=== PATIENT | female | born 1940 | race Caucasian/White ===

== ENCOUNTER 2020-07-01 11:26 | Outpatient (CLI) | payer MEDICARE, OTHER | END 2020-07-01 11:27 | disposition EMS.NT | LOC: EMS 11:26 | DX: M25.539 Pain in unspecified wrist (principal) ==

== ENCOUNTER 2020-07-01 12:20 | Emergency (ER) | payer MEDICARE, OTHER ==
--- NOTE | 2020-07-01 13:16 | XRAY Report ---
PROCEDURE: Wrist 3 View LT INDICATIONS: injury TECHNIQUE: 3 views of the wrist were acquired. COMPARISON: None FINDINGS: Bones: No dislocations. No suspicious bony lesions. Note is made of a distal radius dorsally impac alyssa and angulated Colace fracture, intra-articular, and a thin fracture fragment is seen at the far d istal tip of the ulnar styloid process. Prior probable fractures of the fourth and fifth carpal bones appear chronic. Scaphoid view: No trauma of the scaphoid is found but no dedicated scaphoid view is available for re view. Soft tissues: No suspicious soft tissue calcifications. IMPRESSION: Acute appearing distal radius fractures with dorsal angulation and impaction injury associated. The f racture at the ulnar styloid process tip is minimal. Old healed metacarpal fractures noted. Prior fix ation devices appear free of disruption. Reviewed by: Miguelito Zabala MD on 07/01/2020 1:15 PM PST Approved by: Miguelito Zabala MD on 07/01/2020 1:15 PM PST Station ID: [id number]
--- NOTE | 2020-07-01 13:17 | ED Physician Documentation ---
History of Present Illness - Stated complaint Stated Complaint: WRIST INJURIES - Chief complaint Chief Complaint: Trauma Ext - Additonal information Additional information: 79-year-old female presents the emergency department for evaluation of bilateral wrist pain though left greater than right. [place] the beach [place] and attempting to pull debris from the water when she lost her footing falling backwards onto an outstretched hand. She had immediate pain in the left wrist with swelling. She also has some pain in the right wrist to a lesser degree. She does have a history of extensive hand fracture and injury to the left hand which was repaired number of years ago. Patient is mostly right-handed but does report herself as ambidextrous. She did not lose consciousness and is not anticoagulated otherwise appears well Past medical history: hypertension Review of Systems Constitutional: reports: Reviewed and negative Ears: reports: Reviewed and negative Nose: reports: Reviewed and negative Cardiac: reports: Reviewed and negative Respiratory: reports: Reviewed and negative : reports: Reviewed and negative Skin: reports: Reviewed and negative Musculoskeletal: reports: Joint pain (bilateral wrist). 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 HEENT: Tonsil/Adenoidectomy - Present Medications Home Medications: Ambulatory Orders Medication Instructions Recorded Confirmed Ibuprofen 400 mg PO DAILY 12/14/15 12/14/15 Simvastatin 20 mg PO DAILY 12/14/15 12/14/15 diphenhydrAMINE [Benadryl] 1 tab PO DAILY 12/14/15 12/14/15 - Allergies Allergies/Adverse Reactions: Allergies Allergy/AdvReac Type Severity Reaction Status Date / Time Influenza Virus Vaccines Allergy Unknown Verified 07/01/20 12:34 shellfish derived Allergy Anaphylaxis Verified 07/01/20 12:34 - Social History Does the pt smoke?: No Smoking Status: Never smoker Does the pt drink ETOH?: Yes Does the pt have substance abuse?: No - Immunizations Immunizations are current?: Yes PD ED PE EXPANDED - General General: Alert, No acute distress, Well developed/nourished - Cardiac Cardiac: Regular Rate, Radial strong equal, Cap refill < 2 sec - Extremities Extremities: Right wrist (tenderness on dorsum of wrist without deformit. no snuff box tenderness. 2+ radial pulse, 1+ ulnar. Full ROM), Left wrist (swelling & hematoma dorsum of drist distal to radius. Reduced ROm secondary to Pain. + snuff box tenderness. brisk cap refill. 2+ radial and 1+ ulnar pulse) Results - Vitals Vitals: Vital Signs - 24 hr 07/01/20 12:35 Temperature 36.4 C L Heart Rate 66 Respiratory 20 Rate Blood Pressure 161/85 H O2 Saturation 100 Oxygen O2 Source Room air - Rads (name of study) left wrist Radiology: Final report received right wrist Radiology: Final report received (fracture or dislocation) PD MEDICAL DECISION MAKING - ED course Complexity details: reviewed results, re-evaluated patient, considered differential ED course: 79-year-old female presents to the emergency department for evaluation of bilateral wrist pain though left greater than right. She fell at the beach while helping retrieve debris from the water. X-ray of the left wrist does show an acute distal radial fracture with mild angulation and impaction. Patient was placed in a sugar tong splint and given a sling. Post splinting she has very warm digits brisk cap refill and reports improved pain. She declined a prescription for ibuprofen or [place] states that she has that medication at home. She is going to follow-up with Dr. Hope hand surgeon at [place] [facility]. X-ray of the right wrist did not show any fractures or dislocation. There was no snuffbox tenderness. Routine splint care and emergent return precautions were discussed. Departure - Departure Disposition: 01 Home, Self Care Clinical Impression: Closed left radial fracture Qualifiers: Encounter type: initial encounter Radius location: distal Fracture morphology: other fracture Qualified Code(s): S52.592A - Other fractures of lower end of left radius, initial encounter for closed fracture Left ulnar fracture Qualifiers: Encounter type: initial encounter Ulna location: styloid process Fracture type: closed Fracture alignment: nondisplaced Qualified Code(s): S52.615A - Nondisplaced fracture of left ulna styloid process, initial encounter for closed fracture Condition: Critical Instructions: ED Fx Forearm Radius Ulna No Redu Requ Follow-Up: Ren Hope MD [Physician No Access] - Comments: Unfortunately the x-ray of your left wrist shows both a radial and anulnar fracture. You have been placed in a sugar tong splint. This is a temporary splint that cannot get wet. If it gets wet return to the ER to have it replaced. If you find that you are having increased pain, cold hand numb fingers please return to the ER to have the splint reevaluated. You are choosing to follow-up with Dr. Hope a hand surgeon in [place]. Please schedule an appointment to follow-up this fracture within the next 7 to 10 days. I do recommend that you take ibuprofen or Tylenol at home for pain control.
--- NOTE | 2020-07-01 13:41 | XRAY Report ---
PROCEDURE: Wrist 3 View RT INDICATIONS: fall; r/o fx TECHNIQUE: 3 views of the wrist were acquired. COMPARISON: None FINDINGS: Bones: No fractures or dislocations. No suspicious bony lesions. Soft tissues: No suspicious soft tissue calcifications. IMPRESSION: No fracture. No acute osseous lesion. If there are persistent symptoms or continued clinical concern for pathology, then repeat plain film radiographs (7-10 days) or advanced imaging (CT, MR, bone scan) should be considered for further evaluation. Reviewed by: Susan Hwang MD, PhD on 07/01/2020 1:40 PM PST Approved by: Susan Hwang MD, PhD on 07/01/2020 1:40 PM [facility] Station ID: [id number]
[2020-07-01] MEDS ORDERED: IBUPROFEN 600 MG TABLET PO STA (14:32)
[2020-07-01 14:56] VITALS: BP 147/62
== END 2020-07-01 15:10 | disposition home or self-care (01) ==
LOC: ED 12:20
DX: S52.592A Other fractures of lower end of left radius, initial encounter for closed fracture (principal); S52.615A Nondisplaced fracture of left ulna styloid process, initial encounter for closed fracture; W01.0XXA Fall on same level from slipping, tripping and stumbling without subsequent striking against object, initial encounter; Y93.89 Activity, other specified; Y92.832 Beach as the place of occurrence of the external cause; I10 Essential (primary) hypertension
CPT/HCPCS: 73110; 99283; A9270

== ENCOUNTER 2021-07-05 08:38 | Emergency (ER) | payer MEDICARE, OTHER ==
--- NOTE | 2021-07-05 09:30 | ED Physician Documentation ---
History of Present Illness - Stated complaint Stated Complaint: GLF - Chief complaint Chief Complaint: Trauma Ext - History obtained from History obtained from: Patient - History of Present Illness Timing: How many days ago (3) Pain level max: 5 Pain level now: 3 - Additonal information Additional information: 80-year-old female who presents to the emergency department after a ground-level fall at home 3 days ago. She states that she lives at home with her who has dementia. She states that she accidentally tripped over him. She fell and hit the left side of her face and left hip. Has had bruising, swelling and pain since then. She is able to walk, but with the discomfort. She states that her family recommended that she come to the hospital for treatment. She does not take any anticoagulants at home. Worse with movement and walking. Better with rest. No loss of consciousness. No headache. No vision changes. Review of Systems Constitutional: denies: Fever, Chills Eyes: denies: Loss of vision, Decreased vision, Photophobia Ears: denies: Ear pain Nose: denies: Rhinorrhea / runny nose, Congestion Throat: denies: Sore throat Cardiac: denies: Chest pain / pressure Respiratory: denies: Cough GI: denies: Vomiting, Diarrhea Musculoskeletal: denies: Neck pain, Back pain Neurologic: denies: Focal weakness, Numbness, Confused, Headache, LOC PD PAST MEDICAL HISTORY - Past Medical History Past Medical History: Yes Cardiovascular: Hypertension, High cholesterol Respiratory: None Neuro: None Endocrine/Autoimmune: None GI: None [employer]: None : None HEENT: None Psych: None Musculoskeletal: None Derm: None - Past Surgical History 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 HEENT: Tonsil/Adenoidectomy - Present Medications Home Medications: Ambulatory Orders Medication Instructions Recorded Confirmed Ibuprofen 400 mg PO DAILY 12/14/15 07/05/21 Simvastatin 20 mg PO DAILY 12/14/15 07/05/21 diphenhydrAMINE [Benadryl] 1 tab PO DAILY PRN 12/14/15 07/05/21 Cetirizine [ZyrTEC] 10 mg PO DAILY PRN 07/05/21 07/05/21 Lisinopril [Zestril] 10 mg PO DAILY 07/05/21 07/05/21 - Allergies Allergies/Adverse Reactions: Allergies Allergy/AdvReac Type Severity Reaction Status Date / Time Influenza Virus Vaccines Allergy Unknown Verified 07/05/21 08:44 shellfish derived Allergy Anaphylaxis Verified 07/05/21 08:44 - Social History Does the pt smoke?: No Smoking Status: Never smoker Does the pt drink ETOH?: Yes Does the pt have substance abuse?: No - Immunizations Immunizations are current?: Yes PD ED PE NORMAL - Vitals Vital signs reviewed: Yes - General General: Alert and oriented X 3, No acute distress - HEENT HEENT: PERRL, Moist mucous membranes, Other (Mild periorbital ecchymosis to the left periorbital area. Mild tenderness on the left periorbital area, lateral aspect. Otherwise no scalp hematomas.) - Neck Neck: Supple, no meningeal sign, No bony TTP, Other (No midline tenderness. No step-off or deformity. Full range of motion without pain. No neurological deficits) - Cardiac Cardiac: RRR, Strong equal pulses - Respiratory Respiratory: No respiratory distress, Clear bilaterally - Abdomen Abdomen: Soft, Non tender, Non distended - Derm Derm: Warm and dry - Extremities Extremities: No edema, No calf tenderness / cord, Other (Mild ecchymosis to the left hip. Full range of motion. Neurovascularly intact. Mild pain with range of motion) - Neuro Neuro: Alert and oriented X 3, ui architect 2-12 intact, No motor deficit, No sensory deficit, Normal speech Eye Opening: Spontaneous Motor: Obeys Commands Verbal: Oriented GCS Score: 15 - Psych Psych: Normal mood, Normal affect Results - Vitals Vitals: Vital Signs - 24 hr 07/05/21 07/05/21 08:44 10:51 Temperature 36.7 C 36.8 C Heart Rate 66 68 Respiratory 16 16 Rate Blood Pressure 153/75 H 152/106 H O2 Saturation 100 99 Oxygen O2 Source Room air - Rads (name of study) Head CT Radiology: Final report received, EMP read contemporaneously, See rad report Maxillofacial CT Radiology: Final report received, EMP read contemporaneously, See rad report L hip xray Radiology: Final report received, EMP read contemporaneously, See rad report PD MEDICAL DECISION MAKING - ED course Complexity details: reviewed results, re-evaluated patient, considered differential, d/w patient ED course: No acute findings on head CT or maxillofacial CT. The left hip x-ray shows an asymmetric cortical thickness in the left inferior pubic ramus without definite fracture line or cortical disruption. Discussed this finding with the patient. She does not want to perform a CT of the pelvis at this time. She understands that this fracture would be treated with supportive care and weightbearing as tolerated. No other acute injuries. The periorbital ecchymosis will resolve on its own. Normal vision. No hyphema. No vision changes. Patient counseled regarding signs and symptoms for which I believe and urgent re-evaluation would be necessary. Patient with good understanding of and agreement to plan and is comfortable going home at this time This document was made in part using voice recognition software. While efforts are made to proofread this document, sound alike and grammatical errors may occur. Departure - Departure Disposition: 01 Home, Self Care Clinical Impression: Periorbital contusion of left eye Qualifiers: Encounter type: initial encounter Qualified Code(s): S05.12XA - Contusion of eyeball and orbital tissues, left eye, initial encounter Contusion of hip, left Qualifiers: Encounter type: initial encounter Qualified Code(s): S70.02XA - Contusion of left hip, initial encounter Condition: Good Instructions: ED Contusion Face, ED Contusion Hip Follow-Up: PACO SEPULVEDA MD [Primary Care Provider] - Within 1 week Comments: You can use Motrin or Tylenol as needed for pain. Please follow-up with your doctor as needed for further care. Your CT scans do not show any acute abnormalities today. On your left hip x-ray there is a question of a possible inferior pubic ramus fracture. This would be considered a stable fracture and the treatment is weightbearing as tolerated. We did discuss a CT scan, but as this will not change the treatment, we will instead provide symptomatic care. You can use a walker if you are having pain with ambulation. Return if you worsen. Discharge Date/Time: 07/05/21 10:52
--- NOTE | 2021-07-05 09:45 | CT Report ---
PROCEDURE: HEAD WO INDICATIONS: fall, head injury TECHNIQUE: Noncontrast 4.5 mm thick angled axial sections acquired from the foramen magnum to the vertex. For r adiation dose reduction, the following was used: automated exposure control, adjustment of mA and/or kV according to patient size. COMPARISON: None. FINDINGS: Image quality: Excellent. CSF spaces: Basal cisterns are patent. No extra-axial fluid collections. Ventricles are normal in size and shape. Brain: No midline shift. No intracranial masses or hemorrhage. [place]ia-white matter interface is norm al. There is diffuse cortical volume loss with associated ex vacuo dilatation of the bilateral ventr icles. No acute intracranial hemorrhage or evidence of transcortical infarction. Scattered bilatera l periventricular white matter hypoattenuation likely sequela from chronic small vessel ischemic dise ase. Atherosclerotic calcifications within the intracranial segments of the bilateral internal caroti d arteries are noted. Skull and face: Calvarium and visualized facial bones are intact, without suspicious lesions. Sinuses: Visualized sinuses and mastoids are clear. IMPRESSION: CT head without acute intracranial abnormalities. No acute calvarial fracture seen. Age-related senescent changes and sequela of chronic small vessel ischemic disease. Reviewed by: Hieu Vang MD on 07/05/2021 8:44 AM [facility] Approved by: Hieu Vang MD on 07/05/2021 8:44 AM [facility] Station ID: [id number]
--- NOTE | 2021-07-05 09:49 | CT Report ---
PROCEDURE: MAXILLOFACIAL WO INDICATIONS: Fall, L perioribital injury TECHNIQUE: Noncontrast 1.5 mm thick axial images acquired from the mandible through the frontal sinuses, with co rodney and sagittal reformatting. For radiation dose reduction, the following was used: automated ex posure control, adjustment of mA and/or kV according to patient size. COMPARISON: None. FINDINGS: Image quality: Excellent. Bones and teeth: Orbital roberts are intact. Sinus roberts show no fracture or deformity. Nasal bones and septum are intact. Visualized portions of the mandible demonstrate no fractures or subluxation. Zygomatic arches are intact. Pterygoid plates are intact. Visualized portions of the skull base an d auditory canals are intact. Cranial cervical junction appears intact. Visualized portions of the u pper cervical spine appear intact without acute compression fractures. Severe multilevel cervical spo ndylosis of the imaged portions of the cervical spine. Sinuses: Paranasal sinuses are aerated, without fluid levels, mucosal thickening, or mucoceles. Mas toid air cells are aerated. Soft tissues: There is mild superficial soft tissue contusion overlying the left maxilla and periorbi marion region. No fluid collections. No underlying osseous abnormalities. No enlarged lymph nodes. No s oft tissue lacerations or debris. Vascular: Visualized vascular structures appear normal in the absence of contrast. Bony vascular fo ramina and canals are intact. Atherosclerotic calcifications noted in the intracranial segments of t he internal carotid arteries. IMPRESSION: 1. Mild superficial soft tissue contusion overlying the left maxilla and left periorbital region with out underlying facial fractures. 2. Advanced multilevel cervical spondylosis of the imaged portions of the cervical spine. No acute co mpression fracture seen. Reviewed by: Hieu Vang MD on 07/05/2021 8:48 AM [facility] Approved by: Hieu Vang MD on 07/05/2021 8:48 AM [facility] Station ID: [id number]
--- NOTE | 2021-07-05 09:53 | XRAY Report ---
PROCEDURE: Hip w/Pelvis 2-3V LT INDICATIONS: fall, L hip injury TECHNIQUE: AP pelvis with lateral view(s) of the left hip(s). COMPARISON: None. FINDINGS: Bones: Diffuse osteopenia. Mild degenerative changes of the bilateral hips more pronounced on the ri ght. Lower lumbar spondylosis. There is asymmetric appearance of cortical thickness involving the lef t inferior pubic ramus without definite fracture line or cortical disruption identified. Otherwise, n o fractures or dislocations. No suspicious bony lesions. Soft tissues: The visualized bowel gas pattern is normal. No suspicious soft tissue calcifications. IMPRESSION: 1. Asymmetric cortical thickness of the left inferior pubic ramus without definite fracture line or c ortical disruption identified. Otherwise, no evidence for acute fracture or dislocation of the pelvis /left hip. If there is high clinical suspicion for occult fracture, consider further evaluation with CT of the pelvis. 2. Right greater than left bilateral hip degenerative change. Lower lumbar spondylosis. 3. Osteopenia. Reviewed by: Hieu Vang MD on 07/05/2021 8:52 AM [facility] Approved by: Hieu Vang MD on 07/05/2021 8:52 AM [facility] Station ID: [id number]
[2021-07-05 10:51] VITALS: BP 152/106
== END 2021-07-05 10:52 | disposition home or self-care (01) ==
LOC: ED 08:38
DX: S05.12XA Contusion of eyeball and orbital tissues, left eye, initial encounter (principal); S70.02XA Contusion of left hip, initial encounter; W01.10XA Fall on same level from slipping, tripping and stumbling with subsequent striking against unspecified object, initial encounter; Y92.009 Unspecified place in unspecified non-institutional (private) residence as the place of occurrence of the external cause
CPT/HCPCS: 99282; 99284